=== PATIENT | female | born 1965 | race Two or more races ===

== ENCOUNTER 2019-10-02 06:07 | Emergency (ER) | payer MEDICAID ==
[~2019-10-02] VITALS: Ht 167.6 cm; Wt 70.0 kg
[2019-10-02] MEDS ORDERED: SODIUM CHLORIDE 0.9% 1000ML BAG (SEPSIS BOLUS) IV ONE (06:30)
[2019-10-02 06:54] LABS: BASOPHILS % 3.4 % (0.0-2.0); EOSINOPHILS % 2.8 % (0.0-5.0); HEMATOCRIT. 36.2 % (36.0-48.0); HEMOGLOBIN. 12.1 g/dL (12.0-16.0); LYMPHOCYTES % 19.4 % (20.0-50.0); MEAN CORPUSCULAR HEMOGLOBIN 30.9 pg (28.0-32.0); MEAN CORPUSCULAR VOLUME 92.7 fL (81.0-99.0); MONOCYTES % 5.2 % (2.0-8.0); NEUTROPHILS % 69.2 % (40.0-76.0); PLATELET 326 x1000/uL (130-400); RED BLOOD CELL COUNT 3.91 mill/uL (4.2-5.4); RED CELL DISTRIBUTION WIDTH 17.1 % (11.6-14.6)
[2019-10-02 06:57] LABS: INR 0.9
[2019-10-02 07:01] LABS: CHLORIDE 106 mEq/L (98-107)
[2019-10-02 07:05] LABS: ETHANOL BLOOD 58 mg/dL
[2019-10-02 07:30] LABS: CLARITY URINE CLOUDY (CLEAR); COLOR URINE YELLOW (YELLOW); KETONES URINE TRACE (NEGATIVE); LEUKOCYTE ESTERASE URINE NEGATIVE (NEGATIVE); NITRITE URINE NEGATIVE (NEGATIVE); OCCULT BLOOD URINE NEGATIVE (NEGATIVE); PROTEIN URINE 1+ (NEGATIVE); SPECIFIC GRAVITY URINE 1.017 (1.005-1.030); UROBILINOGEN URINE 0.2 E.U./dL (0.2-1.0)
[2019-10-02 11:14] LABS: BG BASE EXCESS -7.4 mmol/L (-2.0-2.0); BG FRACTION INSPIRED OXYGEN 21; BG METHEMOGLOBIN 0.2 % (0.0-1.5); BG OXYHEMOGLOBIN 93.8 % (94.0-97.0); BG PCO2 26.5 mmHg (35.0-45.0); BG PO2 75.9 mmHg (75.0-100.0); BG SAMPLE SITE RIGHT RADIAL; BG TOTAL HEMOGLOBIN 11.4 g/dL (12.0-18.0); BG VENT MODE ROOM AIR
[2019-10-02] MEDS ORDERED: POTASSIUM CHLORIDE INJ 40 MEQ in DEXT 5% WATER 250 ML IV SCH (11:15)
[2019-10-02 12:10] VITALS: BP 113/60
[2019-10-02] MEDS ORDERED: POTASSIUM CHLORIDE 20MEQ TABLET SR PO NR (12:30)
== END 2019-10-02 12:43 | disposition short-term general hospital (02) ==
LOC: ER 06:07 → SUPCPDRO 10:41 → CANBEDREQ 11:24 → ER 12:43
DX: R53.1 Weakness (principal); E86.0 Dehydration; F10.229 Alcohol dependence with intoxication, unspecified; E87.6 Hypokalemia; E87.2 Acidosis; E66.9 Obesity, unspecified; F12.10 Cannabis abuse, uncomplicated; F17.210 Nicotine dependence, cigarettes, uncomplicated; Y90.2 Blood alcohol level of 40-59 mg/100 ml; Z68.24 Body mass index [BMI] 24.0-24.9, adult; Z86.19 Personal history of other infectious and parasitic diseases; Z98.890 Other specified postprocedural states; Z88.0 Allergy status to penicillin
CPT/HCPCS: 36415; 36600; 71045; 80053; 80320; 81003; 82375; 82805; 83605; 84145; 84484; 85025; 85610; 87040; 87086; 93005; 96361; 96365; 99285; J3480; J7030; J7060; G0480

== ENCOUNTER 2019-11-08 12:53 | Inpatient (IN) | payer MEDICAID, OTHER ==
[~2019-11-08] VITALS: Ht 160 cm; Wt 95.3 kg
[2019-11-08] MEDS ORDERED: SODIUM CHLORIDE 0.9% 1,000 ML IV ONE (13:29)
[2019-11-08 14:19] LABS: BASOPHILS % 0.6 % (0.0-2.0); EOSINOPHILS % 3.8 % (0.0-5.0); HEMATOCRIT. 34.7 % (36.0-48.0); HEMOGLOBIN. 11.6 g/dL (12.0-16.0); LYMPHOCYTES % 25.1 % (20.0-50.0); MEAN CORPUSCULAR HEMOGLOBIN 30.5 pg (28.0-32.0); MEAN CORPUSCULAR VOLUME 91.3 fL (81.0-99.0); MEAN PLATELET VOLUME 8.7 fl (7.4-10.4); MONOCYTES % 6.7 % (2.0-8.0); NEUTROPHILS % 63.8 % (40.0-76.0); PLATELET 105 x1000/uL (130-400); RED CELL DISTRIBUTION WIDTH 17.4 % (11.6-14.6)
[2019-11-08 14:26] LABS: CHLORIDE 101 mEq/L (98-107)
[2019-11-08 14:30] LABS: D-DIMER 1.63 mg/L FEU (<0.50); ETHANOL BLOOD < 10 mg/dL; INR 0.9; PROTHROMBIN TIME 10.2 sec (9.6-11.0)
[2019-11-08 14:36] LABS: CLARITY URINE TURBID (CLEAR); COLOR URINE DARK YELLOW (YELLOW); KETONES URINE TRACE (NEGATIVE); LEUKOCYTE ESTERASE URINE 3+ (NEGATIVE); NITRITE URINE POSITIVE (NEGATIVE); OCCULT BLOOD URINE NEGATIVE (NEGATIVE); PROTEIN URINE 2+ (NEGATIVE); SPECIFIC GRAVITY URINE 1.024 (1.005-1.030)
[2019-11-08 14:56] LABS: *COCAINE SCREEN URINE NEGATIVE (NEGATIVE); METHADONE URINE SCREEN NEGATIVE (NEGATIVE)
[2019-11-08 14:57] LABS: *AMPHETAMINES SCREEN URINE NEGATIVE (NEGATIVE); *BARBITURATES SCREEN URINE NEGATIVE (NEGATIVE); *BENZODIAZEPINES SCREEN URINE PRESUMTIVE POSITIVE (NEGATIVE); CANNABINOID URINE SCREEN PRESUMTIVE POSITIVE (NEGATIVE); OPIATES URINE SCREEN NEGATIVE (NEGATIVE); PHENCYCLIDINE URINE SCREEN NEGATIVE (NEGATIVE)
[2019-11-08] MEDS ORDERED: POTASSIUM CHLORIDE 20MEQ TABLET SR PO ONE (15:00)
[2019-11-08] MEDS ORDERED: KCL 10MEQ/50ML PREMIX 50 ML IV ONE (15:00)
[2019-11-08] MEDS ORDERED: LEVOFLOXACIN 500MG PREMIX 100 ML IV ONE (15:00)
[2019-11-08] MEDS ORDERED: ACETAMINOPHEN 325MG TABLET PO PRN (16:15)
[2019-11-08] MEDS ORDERED: ONDANSETRON HCL 4MG/2ML INJ IV PRN (16:15)
[2019-11-08] MEDS: DEXT 5%/0.45% NACL 1000ML 1,000 ML IV SCH (16:44)
[2019-11-08 18:00] VITALS: BP 100/64
[2019-11-08] MEDS ORDERED: SERT25TA MT (18:32)
[2019-11-08] MEDS ORDERED: lithium PO (18:32)
[2019-11-08] MEDS ORDERED: QUET300T2 MT (18:32)
[2019-11-08] MEDS ORDERED: LANS30CA55 MT (18:32)
[2019-11-08] MEDS ORDERED: LEVO125T8 MT (18:32)
[2019-11-08] MEDS ORDERED: DICY10SO PO (18:32)
[2019-11-08] MEDS: ENOXAPARIN 40MG/0.4ML SYR SUBCUT SCH (21:47)
[2019-11-08] MEDS: HYDROCODONE/ACETAMINOPHEN 5/325MG TABLET PO PRN (22:50)
[2019-11-08] MEDS ORDERED: TEMAZEPAM 15MG CAPSULE PO PRN (23:15)
[2019-11-08 23:40] LABS: CREATINE KINASE 43 IU/L (26-192)
[2019-11-09] VITALS (7 sets, daily range): BP systolic 93–136; BP diastolic 48–67
[2019-11-09] MEDS: DEXT 5%/0.45% NACL 1000ML 1,000 ML IV SCH ×2 (05:29→18:35)
[2019-11-09 06:41] LABS: BASOPHILS % 0.9 % (0.0-2.0); EOSINOPHILS % 5.1 % (0.0-5.0); HEMATOCRIT. 31.5 % (36.0-48.0); HEMOGLOBIN. 10.5 g/dL (12.0-16.0); LYMPHOCYTES % 46.2 % (20.0-50.0); MEAN CORPUSCULAR VOLUME 93.3 fL (81.0-99.0); MEAN PLATELET VOLUME 8.5 fl (7.4-10.4); MONOCYTES % 8.9 % (2.0-8.0); NEUTROPHILS % 38.9 % (40.0-76.0); PLATELET 98 x1000/uL (130-400); RED BLOOD CELL COUNT 3.38 mill/uL (4.2-5.4); RED CELL DISTRIBUTION WIDTH 17.6 % (11.6-14.6)
[2019-11-09 06:52] LABS: CHLORIDE 105 mEq/L (98-107)
[2019-11-09 07:03] LABS: CREATINE KINASE 35 IU/L (26-192); HDL CHOLESTEROL 75 mg/dL (40-59); LDL CHOLESTEROL 43 mg/dL (5-100)
[2019-11-09 07:05] LABS: T4 FREE 0.34 ng/dL (0.76-1.46)
[2019-11-09] MEDS ORDERED: LEVOTHYROXINE SODIUM 125MCG TABLET PO SCH (09:45)
[2019-11-09] MEDS ORDERED: POTASSIUM CHLORIDE 20MEQ TABLET SR PO NR ×2 (09:45→21:00)
[2019-11-09] MEDS: LEVOFLOXACIN 500MG PREMIX 100 ML IV SCH (10:05)
[2019-11-09] MEDS: SERTRALINE HCL 25MG TABLET PO SCH (10:06)
[2019-11-09] MEDS: PANTOPRAZOLE 40MG DR TABLET PO SCH (10:06)
[2019-11-09] MEDS: HYDROCODONE/ACETAMINOPHEN 5/325MG TABLET PO PRN ×3 (11:43→23:37)
[2019-11-09] MEDS: MULTIVITAMINS,THER W-MINERALS TABLET PO SCH (14:05)
[2019-11-09] MEDS: THIAMINE HCL 100MG TABLET PO SCH (14:05)
[2019-11-09] MEDS: FOLIC ACID 1MG TABLET PO SCH (14:05)
[2019-11-09] MEDS ORDERED: LEVOFLOXACIN 500MG PREMIX 100 ML IV SCH (15:00)
[2019-11-09 16:22] LABS: TOTAL IRON BINDING CAPACITY 325 ug/dL (250-450)
[2019-11-09 16:44] LABS: HEPATITIS B SURFACE ANTIGEN NEGATIVE
[2019-11-09 16:48] LABS: VITAMIN B12 SERUM 470 pg/mL (211-911)
[2019-11-09] MEDS: DIPHENOXYLATE/ATROPINE 2.5/0.025MG TABLET PO PRN (16:50)
[2019-11-09 17:14] LABS: HEPATITIS A AB IGM NEGATIVE (NEGATIVE)
[2019-11-09] MEDS ORDERED: MAGNESIUM 1 G PREMIX 100 ML IV NR ×2 (18:00→21:00)
[2019-11-09 20:10] LABS: CHLORIDE 106 mEq/L (98-107)
[2019-11-09] MEDS ORDERED: MEDICATION NOT ON FORMULARY EA (Quetiapine Fumarate (Seroquel) 1 TAB) MT SCH (21:00)
[2019-11-09] MEDS: TRAZODONE HCL 50MG TABLET PO PRN (21:26)
[2019-11-09] MEDS: QUETIAPINE FUMARATE 50MG TABLET PO SCH (21:27)
[2019-11-09] MEDS: METRONIDAZOLE 500MG TABLET PO SCH (21:27)
[2019-11-09] MEDS: ENOXAPARIN 40MG/0.4ML SYR SUBCUT SCH (21:30)
[2019-11-10] VITALS: BP 89/48
[2019-11-10 04:00] VITALS: BP 85/54
[2019-11-10] MEDS: LEVOTHYROXINE SODIUM 150MCG TABLET PO SCH (06:20)
[2019-11-10] MEDS: PANTOPRAZOLE 40MG DR TABLET PO SCH (06:20)
[2019-11-10] MEDS: METRONIDAZOLE 500MG TABLET PO SCH ×3 (06:20→22:01)
[2019-11-10 07:29] LABS: HEMATOCRIT. 30.1 % (36.0-48.0); HEMOGLOBIN. 9.9 g/dL (12.0-16.0); MEAN CORPUSCULAR HEMOGLOBIN 30.7 pg (28.0-32.0); MEAN CORPUSCULAR VOLUME 93.4 fL (81.0-99.0); PLATELET 117 x1000/uL (130-400); RED BLOOD CELL COUNT 3.22 mill/uL (4.2-5.4); RED CELL DISTRIBUTION WIDTH 17.8 % (11.6-14.6)
[2019-11-10 07:42] LABS: CHLORIDE 106 mEq/L (98-107)
[2019-11-10 07:49] LABS: PHOSPHORUS 3.5 mg/dL (2.5-4.9)
[2019-11-10] MEDS: LEVOFLOXACIN 500MG PREMIX 100 ML IV SCH (08:52)
[2019-11-10] MEDS: DEXT 5%/0.45% NACL 1000ML 1,000 ML IV SCH (08:53)
[2019-11-10] MEDS: MULTIVITAMINS,THER W-MINERALS TABLET PO SCH (08:59)
[2019-11-10] MEDS: FOLIC ACID 1MG TABLET PO SCH (08:59)
[2019-11-10] MEDS: THIAMINE HCL 100MG TABLET PO SCH (08:59)
[2019-11-10] MEDS: DIPHENOXYLATE/ATROPINE 2.5/0.025MG TABLET PO PRN (08:59)
[2019-11-10] MEDS: SERTRALINE HCL 25MG TABLET PO SCH (08:59)
[2019-11-10] MEDS ORDERED: LANSOPRAZOLE 30MG DR CAPSULE PO SCH (09:00)
[2019-11-10] MEDS: HYDROCODONE/ACETAMINOPHEN 5/325MG TABLET PO PRN (09:00)
[2019-11-10 10:12] LABS: PLATELET ESTIMATE DECREASED
[2019-11-10 11:53] VITALS: BP 78/58
[2019-11-10] MEDS ORDERED: DIPHENOXYLATE/ATROPINE 2.5/0.025MG TABLET PO SCH (12:15)
[2019-11-10] MEDS ORDERED: MIDODRINE HCL 5MG TABLET PO NR (12:45)
[2019-11-10] MEDS: FERROUS SULFATE 325MG TABLET PO SCH ×2 (13:29→17:22)
[2019-11-10 15:49] VITALS: BP 85/61
[2019-11-10] MEDS: SODIUM CHLORIDE 0.9% 1,000 ML IV SCH (17:21)
[2019-11-10] MEDS: SODIUM CHLORIDE 0.9% 250 ML IV NR ×2 (17:22→18:45)
[2019-11-10] MEDS: MIDODRINE HCL 5MG TABLET PO SCH (17:22)
[2019-11-10 20:00] VITALS: BP 95/42
[2019-11-10] MEDS: TRAZODONE HCL 50MG TABLET PO PRN (22:00)
[2019-11-10] MEDS: QUETIAPINE FUMARATE 50MG TABLET PO SCH (22:01)
[2019-11-10] MEDS: ENOXAPARIN 40MG/0.4ML SYR SUBCUT SCH (22:13)
[2019-11-11] VITALS: BP 85/48
[2019-11-11] MEDS: SODIUM CHLORIDE 0.9% 1,000 ML IV SCH ×3 (01:00→21:07)
[2019-11-11 04:00] VITALS: BP 80/45
[2019-11-11] MEDS: LEVOTHYROXINE SODIUM 150MCG TABLET PO SCH (06:23)
[2019-11-11] MEDS: METRONIDAZOLE 500MG TABLET PO SCH ×3 (06:23→21:06)
[2019-11-11] MEDS: PANTOPRAZOLE 40MG DR TABLET PO SCH (06:23)
[2019-11-11 06:31] LABS: HEMATOCRIT. 26.3 % (36.0-48.0); HEMOGLOBIN. 8.7 g/dL (12.0-16.0); MEAN CORPUSCULAR HEMOGLOBIN 31.1 pg (28.0-32.0); MEAN CORPUSCULAR VOLUME 93.4 fL (81.0-99.0); MEAN PLATELET VOLUME 7.9 fl (7.4-10.4); PLATELET 137 x1000/uL (130-400); RED BLOOD CELL COUNT 2.81 mill/uL (4.2-5.4)
[2019-11-11 06:38] LABS: CHLORIDE 109 mEq/L (98-107)
[2019-11-11 08:00] VITALS: BP 90/57
[2019-11-11] MEDS: MIDODRINE HCL 5MG TABLET PO SCH ×3 (09:00→17:32)
[2019-11-11] MEDS: MULTIVITAMINS,THER W-MINERALS TABLET PO SCH (09:00)
[2019-11-11] MEDS: FOLIC ACID 1MG TABLET PO SCH (09:00)
[2019-11-11] MEDS: FERROUS SULFATE 325MG TABLET PO SCH ×3 (09:00→17:26)
[2019-11-11] MEDS: SERTRALINE HCL 25MG TABLET PO SCH (09:01)
[2019-11-11] MEDS: THIAMINE HCL 100MG TABLET PO SCH (09:01)
[2019-11-11 09:06] LABS: FOLATE HEMATOCRIT 33.9 % (34.0-46.6)
[2019-11-11] MEDS ORDERED: MIDODRINE HCL 5MG TABLET PO SCH (11:00)
[2019-11-11] MEDS ORDERED: POTASSIUM CHLORIDE 20MEQ TABLET SR PO SCH (11:00)
[2019-11-11 11:46] LABS: PLATELET ESTIMATE NORMAL
[2019-11-11 12:00] VITALS: BP_SYST 70; BP_SYST 72; BP_SYST 90; BP_DIAS 41; BP_DIAS 45; BP_DIAS 55
[2019-11-11] MEDS ORDERED: LEVOTHYROXINE SODIUM 25MCG TABLET PO SCH (12:00)
[2019-11-11] MEDS: LEVOFLOXACIN 500MG TABLET PO SCH (14:04)
[2019-11-11] MEDS: FLUDROCORTISONE ACETATE 0.1MG TABLET PO SCH (14:04)
[2019-11-11 16:00] VITALS: BP 104/60
[2019-11-11 16:01] LABS: HEMATOCRIT 30.9 % (36.0-48.0); HEMOGLOBIN 10.1 g/dL (12.0-16.0); MEAN CORPUSCULAR HEMOGLOBIN 31.3 pg (28.0-32.0); MEAN CORPUSCULAR VOLUME 95.4 fL (81.0-99.0); PLATELET 146 x1000/uL (130-400); RED BLOOD CELL COUNT 3.24 mill/uL (4.2-5.4); RED CELL DISTRIBUTION WIDTH 17.6 % (11.6-14.6)
[2019-11-11] MEDS: HYDROCODONE/ACETAMINOPHEN 5/325MG TABLET PO PRN (17:26)
[2019-11-11 20:00] VITALS: BP 108/54
[2019-11-11] MEDS: TRAZODONE HCL 50MG TABLET PO PRN (21:06)
[2019-11-11] MEDS: QUETIAPINE FUMARATE 50MG TABLET PO SCH (21:06)
[2019-11-12 04:00] VITALS: BP 88/55
[2019-11-12] MEDS: HYDROCODONE/ACETAMINOPHEN 5/325MG TABLET PO PRN ×3 (04:39→20:03)
[2019-11-12] MEDS: METRONIDAZOLE 500MG TABLET PO SCH ×3 (06:22→21:31)
[2019-11-12] MEDS: LEVOTHYROXINE SODIUM 175MCG TABLET PO SCH (06:22)
[2019-11-12] MEDS: PANTOPRAZOLE 40MG DR TABLET PO SCH (06:22)
[2019-11-12 06:24] LABS: HEMATOCRIT. 27.5 % (36.0-48.0); MEAN CORPUSCULAR HEMOGLOBIN 31.4 pg (28.0-32.0); MEAN CORPUSCULAR VOLUME 96.4 fL (81.0-99.0); MEAN PLATELET VOLUME 7.8 fl (7.4-10.4); PLATELET 154 x1000/uL (130-400); RED BLOOD CELL COUNT 2.85 mill/uL (4.2-5.4); RED CELL DISTRIBUTION WIDTH 18.2 % (11.6-14.6)
[2019-11-12] MEDS: SODIUM CHLORIDE 0.9% 1,000 ML IV SCH ×2 (06:28→18:03)
[2019-11-12 06:30] LABS: CHLORIDE 117 mEq/L (98-107)
[2019-11-12 08:00] VITALS: BP 87/50
[2019-11-12] MEDS: MIDODRINE HCL 5MG TABLET PO SCH ×3 (08:40→18:03)
[2019-11-12] MEDS: FOLIC ACID 1MG TABLET PO SCH (08:40)
[2019-11-12] MEDS: MULTIVITAMINS,THER W-MINERALS TABLET PO SCH (08:40)
[2019-11-12] MEDS: THIAMINE HCL 100MG TABLET PO SCH (08:40)
[2019-11-12] MEDS: FERROUS SULFATE 325MG TABLET PO SCH ×3 (08:40→18:03)
[2019-11-12] MEDS: SERTRALINE HCL 25MG TABLET PO SCH (08:40)
[2019-11-12] MEDS: FLUDROCORTISONE ACETATE 0.1MG TABLET PO SCH (08:41)
[2019-11-12 09:07] LABS: FOLATE RBC 1150 ng/mL (>498)
[2019-11-12] MEDS: LEVOFLOXACIN 500MG TABLET PO SCH (11:56)
[2019-11-12 12:00] VITALS: BP 114/51
[2019-11-12 13:29] LABS: PLATELET ESTIMATE NORMAL
[2019-11-12 16:00] VITALS: BP 138/66
[2019-11-12] MEDS: QUETIAPINE FUMARATE 50MG TABLET PO SCH (20:02)
[2019-11-12 20:49] VITALS: BP 128/61
[2019-11-12] MEDS: TRAZODONE HCL 50MG TABLET PO PRN (22:31)
[2019-11-13] VITALS (8 sets, daily range): BP systolic 103–128; BP diastolic 51–66
[2019-11-13] MEDS: SODIUM CHLORIDE 0.9% 1,000 ML IV SCH ×2 (02:14→06:11)
[2019-11-13] MEDS: METRONIDAZOLE 500MG TABLET PO SCH ×2 (06:11→13:24)
[2019-11-13] MEDS: LEVOTHYROXINE SODIUM 175MCG TABLET PO SCH (06:35)
[2019-11-13] MEDS: PANTOPRAZOLE 40MG DR TABLET PO SCH (06:35)
[2019-11-13 06:40] LABS: HEMATOCRIT 29.4 % (36.0-48.0); HEMOGLOBIN 9.7 g/dL (12.0-16.0); MEAN CORPUSCULAR HEMOGLOBIN 31.3 pg (28.0-32.0); MEAN CORPUSCULAR VOLUME 95.3 fL (81.0-99.0); PLATELET 190 x1000/uL (130-400); RED BLOOD CELL COUNT 3.09 mill/uL (4.2-5.4); RED CELL DISTRIBUTION WIDTH 17.8 % (11.6-14.6)
[2019-11-13 07:12] LABS: CHLORIDE 115 mEq/L (98-107)
[2019-11-13] MEDS: THIAMINE HCL 100MG TABLET PO SCH (08:57)
[2019-11-13] MEDS: SERTRALINE HCL 25MG TABLET PO SCH (08:57)
[2019-11-13] MEDS: FOLIC ACID 1MG TABLET PO SCH (08:57)
[2019-11-13] MEDS: HYDROCODONE/ACETAMINOPHEN 5/325MG TABLET PO PRN ×2 (08:58→15:15)
[2019-11-13] MEDS: MULTIVITAMINS,THER W-MINERALS TABLET PO SCH (08:58)
[2019-11-13] MEDS: FLUDROCORTISONE ACETATE 0.1MG TABLET PO SCH (08:58)
[2019-11-13] MEDS: MIDODRINE HCL 5MG TABLET PO SCH ×3 (08:58→17:20)
[2019-11-13 10:08] LABS: SACCHAROMYCES CEREVISIAE IGG 63.7 Units (0.0-24.9); SACCHAROMYCES CEREVISIAE IGM <20.0 Units (0.0-24.9)
[2019-11-13] MEDS: FERROUS SULFATE 325MG TABLET PO SCH ×3 (10:23→17:20)
[2019-11-13] MEDS: LEVOFLOXACIN 500MG TABLET PO SCH (11:23)
[2019-11-13 13:10] LABS: ATYPICAL pANCA <1:20 titer (Neg:<1:20)
[2019-11-13] MEDS ORDERED: HYDROCODONE/ACETAMINOPHEN 5/325MG TABLET PO PRN (19:00)
[2019-11-13] MEDS: QUETIAPINE FUMARATE 50MG TABLET PO SCH (20:18)
[2019-11-13] MEDS: TRAZODONE HCL 50MG TABLET PO PRN (22:30)
[2019-11-14] VITALS: BP 96/51
[2019-11-14 04:07] LABS: OVA & PARASITE EXAM Final report (.)
== END 2019-11-14 00:10 | DRG 245 ==
LOC: ER 12:53 → EDBEDREQ 14:40 → EDBEDREQTM 14:40 → 7WST 15:14 → EDBEDREQ 15:22 → EDBEDREQTM 15:22 → ENRESERV 16:40 → 6WST 23:45
PROVIDERS: ADMIT Internal Medicine; ATTEND Internal Medicine
DX: K50.90 Crohn's disease, unspecified, without complications (principal); D69.6 Thrombocytopenia, unspecified; I72.8 Aneurysm of other specified arteries; E46 Unspecified protein-calorie malnutrition; I95.9 Hypotension, unspecified; E83.51 Hypocalcemia; I95.1 Orthostatic hypotension; N39.0 Urinary tract infection, site not specified; E87.6 Hypokalemia; K76.0 Fatty (change of) liver, not elsewhere classified; B96.89 Other specified bacterial agents as the cause of diseases classified elsewhere; D64.9 Anemia, unspecified; D72.819 Decreased white blood cell count, unspecified; E06.3 Autoimmune thyroiditis; F10.10 Alcohol abuse, uncomplicated; Z20.828 Contact with and (suspected) exposure to other viral communicable diseases; M19.90 Unspecified osteoarthritis, unspecified site; Y90.9 Presence of alcohol in blood, level not specified; M06.9 Rheumatoid arthritis, unspecified; F17.200 Nicotine dependence, unspecified, uncomplicated; I10 Essential (primary) hypertension; F99 Mental disorder, not otherwise specified; F31.30 Bipolar disorder, current episode depressed, mild or moderate severity, unspecified; F41.8 Other specified anxiety disorders; F12.10 Cannabis abuse, uncomplicated; Z88.0 Allergy status to penicillin; Z90.49 Acquired absence of other specified parts of digestive tract; Z91.19 Patient's noncompliance with other medical treatment and regimen; Z68.37 Body mass index [BMI] 37.0-37.9, adult; Z79.899 Other long term (current) drug therapy
CPT/HCPCS: 36415; 71045; 74176; 78582; 80048; 80053; 80061; 80076; 80305; 80320; 81003; 82270; 82533; 82550; 82607; 82728; 82747; 83540; 83550; 83605; 83735; 84100; 84145; 84439; 84443; 84484; 85007; 85014; 85025; 85027; 85379; 85384; 86140; 86256; 86671; 86705; 86709; 86803; 87015; 87045; 87077; 87177; 87186; 87209; 87340; 87427; 87449; 87493; 89055; 93005; 93970; 97116; 97162; 97530; 99291; A9558; J1650; J1956; J3475; J3480; J7030; G0480; U0003-CS